=== PATIENT | female | born 1970 | race Caucasian/White ===

== ENCOUNTER 2021-08-14 10:26 | Inpatient (IN) ==
[2021-08-14] MEDS ORDERED: Ondansetron ODT 4 MG TAB.RAPDIS SL ONE (11:25)
[2021-08-14 11:48] LABS: Troponin I < 0.03 ng/mL (< 0.04)
[2021-08-14] MEDS ORDERED: *HR* LORazepam 2 MG/ML VIAL IM PRN (13:36)
[2021-08-14] MEDS ORDERED: MOM Conc 10 ML UD.LIQ PO PRN (13:36)
[2021-08-14] MEDS ORDERED: Mag Hydrox/Al Hydrox/Simeth 30 ML UDC PO PRN (13:36)
[2021-08-14] MEDS ORDERED: hydrOXYzine pamoate 25 MG CAPSULE PO PRN (13:36)
[2021-08-14] MEDS ORDERED: *HR* LORazepam 1 MG TABLET PO PRN (13:36)
[2021-08-14] MEDS ORDERED: QUEtiapine Fumarate 25 MG TABLET PO PRN (13:36)
[2021-08-14] MEDS ORDERED: Haloperidol Lactate 5 MG/ML VIAL IM PRN (13:36)
[2021-08-14] MEDS ORDERED: Acetaminophen 325 MG TABLET PO PRN (13:36)
[2021-08-14] MEDS ORDERED: haloperidoL 5 MG TABLET PO PRN (13:36)
[2021-08-14] MEDS ORDERED: Insulin Human Regular 10 UNIT in 0.9 % Sodium Chloride 10 ML SUBQ ONE (13:37)
[2021-08-14] MEDS ORDERED: *HR* LORazepam 0.5 MG TABLET PO PRN (13:46)
[2021-08-14] MEDS ORDERED: Insulin LISPRO 300 UNITS/3 ML VIAL SUBQ ONE (13:50)
[2021-08-14] MEDS ORDERED: Dextrose 4 GM Chewable Tablets PO PRN ×2 (14:09)
[2021-08-14] MEDS: Insulin LISPRO 300 UNITS/3 ML VIAL SUBQ SCH ×2 (17:04→20:44)
[2021-08-14] MEDS: Gabapentin 300 MG CAPSULE PO SCH ×2 (17:04→22:01)
[2021-08-14] MEDS ORDERED: Ondansetron ODT 4 MG TAB.RAPDIS SL PRN (17:20)
[2021-08-14] MEDS: PARoxetine 10 MG TABLET PO SCH (17:42)
[2021-08-14] MEDS: hydrOXYzine pamoate 25 MG CAPSULE PO SCH (22:00)
[2021-08-14] MEDS: carBAMazepine 200 MG TABLET PO SCH (22:02)
[2021-08-14] MEDS: Insulin DETEMIR 100 UNIT/ML X5UNITS SUBQ SCH (22:03)
[2021-08-14] MEDS ORDERED: SUMAtriptan succinate 50 MG TABLET PO ONE (23:29)
[2021-08-15] MEDS ORDERED: PARoxetine 10 MG TABLET PO SCH (09:00)
[2021-08-15] MEDS: Insulin DETEMIR 100 UNIT/ML X5UNITS SUBQ SCH ×2 (09:15→20:27)
[2021-08-15] MEDS: Insulin LISPRO 300 UNITS/3 ML VIAL SUBQ SCH ×4 (09:15→20:28)
[2021-08-15] MEDS: PARoxetine 10 MG TABLET PO SCH (09:47)
[2021-08-15] MEDS: lisinopriL 5 MG TABLET PO SCH (09:48)
[2021-08-15] MEDS: Gabapentin 300 MG CAPSULE PO SCH ×3 (09:48→20:26)
[2021-08-15] MEDS: hydrOXYzine pamoate 25 MG CAPSULE PO SCH ×2 (09:48→20:27)
[2021-08-15] MEDS: carBAMazepine 200 MG TABLET PO SCH ×2 (09:50→20:26)
[2021-08-15] MEDS: Fenofibrate 54 MG TABLET PO SCH (09:50)
[2021-08-15 12:27] LABS: Lactate Dehydrogenase 189 Units/L (140-271)
[2021-08-15 12:37] LABS: Cancer Antigen 125 13 U/mL (0-35)
[2021-08-15 12:41] LABS: Carcinoembryonic Antigen 1.5 ng/mL (Less than 5.0)
[2021-08-16] MEDS: Insulin DETEMIR 100 UNIT/ML X5UNITS SUBQ SCH (08:07)
[2021-08-16] MEDS: Insulin LISPRO 300 UNITS/3 ML VIAL SUBQ SCH ×3 (08:08→17:02)
[2021-08-16] MEDS: hydrOXYzine pamoate 25 MG CAPSULE PO SCH (08:08)
[2021-08-16] MEDS: Gabapentin 300 MG CAPSULE PO SCH ×2 (08:08→14:56)
[2021-08-16] MEDS: Fenofibrate 54 MG TABLET PO SCH (08:08)
[2021-08-16] MEDS: PARoxetine 10 MG TABLET PO SCH (08:09)
[2021-08-16] MEDS: lisinopriL 5 MG TABLET PO SCH (08:09)
[2021-08-16] MEDS: carBAMazepine 200 MG TABLET PO SCH (08:10)
[2021-08-16 09:49] VITALS: BP 118/88; PULSE 90; TEMP 97.3; O2SAT 97
== END 2021-08-16 17:15 | disposition home or self-care (01) | DRG 885 ==
LOC: EMEROOARM 10:26 → 1ANU 13:25
PROVIDERS: ADMIT Psychiatry & Neurology Neurology; ATTEND Psychiatry & Neurology Neurology